=== PATIENT | female | born 1960 | race Caucasian/White ===

== ENCOUNTER → 2022-02-16 | Outpatient (CLI) | payer SELFPAY ==
--- NOTE | 2022-02-16 08:12 | BI_ITS ---
MAMMOGRAPHY - BILATERAL SCREENING REASON FOR EXAM: Female, 61 years old. Routine annual screening examination. PERTINENT HISTORY: Non-contributory. TECHNIQUE: Digital bilateral breast evelyn (3D mammographic acquisition) in the CC and MLO projections. 2-D mediolateral oblique (MLO) and craniocaudad (CC) views of both breasts were obtained. CAD: Full Field Digital Mammography with Computer Added Detection was performed. COMPARISON: Comparison is made with prior outside examination from 02/21/2007. FINDINGS: Breast Composition: There are scattered areas of fibroglandular density. There is a 7.5 mm x 7 mm well-defined nodule in the deep central medial aspect of the right breast. This has decreased slightly in size as compared to prior study. This may represent a small cyst. Correlation with ultrasound is recommended. No other significant abnormalities are identified. BI/SCRN MAMM (CAD)W/EVELYN BILAT IMPRESSION: 7.5 mm x 7 mm well-defined nodule in the deep central medial aspect of the right breast. Correlation with ultrasound is recommended. ASSESSMENT CATEGORY: BIRADS Category 0: Incomplete. Need additional imaging evaluation. A letter regarding these results will be sent to the patient by the facility within 30 days. Approximately 10% of breast cancers are not detected by mammography. A normal mammogram should not delay biopsy of a clinically suspicious abnormality. [id number] Electronically Signed: Srikanth Fitzpatrick MD at 9:24 EDT ,
== END | disposition home or self-care (01) ==
PROVIDERS: PCP Internal Medicine; Visit Provider Internal Medicine
DX: Z12.31 Encounter for screening mammogram for malignant neoplasm of breast (principal)
CPT/HCPCS: 77063; 77067

== ENCOUNTER → 2022-02-17 | Outpatient (CLI) | payer SELFPAY ==
--- NOTE | 2022-02-17 09:29 | US_ITS ---
STUDY: ULTRASOUND BREAST - RIGHT REASON FOR EXAM: Female, 61 years old. Abnormal screening mammogram. TECHNIQUE: Axial and longitudinal images of the RIGHT breast were performed with a high resolution ultrasound transducer. # OF IMAGES: 39 COMPARISON: Comparison is made with prior mammogram dated 02/16/2022. FINDINGS: RIGHT Breast: The mammographic abnormality corresponds to 3 adjacent cysts at the 1 o''clock position of the breast at 5 cm from the nipple. The largest cyst measures 3 mm x 3 mm x 3 mm. US/Breast Limited Unilateral IMPRESSION: Cluster of small cysts seen at the 1 o''clock position breast at 5 summary some nipple. ASSESSMENT CATEGORY: BIRADS Category 2: Benign. A letter regarding these results will be sent to the patient by the facility within 30 days. Electronically Signed: Srikanth Fitzpatrick MD at 12:11 EDT ,
== END | disposition home or self-care (01) ==
LOC: OPUS 09:20
PROVIDERS: PCP Internal Medicine; Visit Provider Internal Medicine
DX: R92.2 Inconclusive mammogram (principal); N60.01 Solitary cyst of right breast
CPT/HCPCS: 76642

== ENCOUNTER → 2025-01-04 | Outpatient (CLI) | payer MEDICARE, BC, SELFPAY ==
--- NOTE | 2025-01-04 10:18 | MRI_ITS ---
PROCEDURE: MRA HEAD ONLY WITHOUT CONTRAST 01/04/2025 REASON FOR EXAM: FAMILY HISTORY OF BRAIN ANEURYSM (Z82.49) COMPARISON: None available. TECHNIQUE: Multiplanar 2D and 3D [id number] MR angiographic imaging of the brain was performed without intravenous gadolinium-based contrast administration. FINDINGS: Vessels of the [id number] are within normal limits. Major intracranial arterial vessels are patent without flow-limiting stenosis, saccular aneurysm, or vascular malformation. MRI/MRA Head ONLY without Contrast IMPRESSION: Normal intracranial arterial vasculature. No aneurysm identified. Reading Location: [id number]
== END | disposition home or self-care (01) ==
LOC: MRI 10:12
PROVIDERS: PCP Internal Medicine; Referring Provider Internal Medicine; Visit Provider Internal Medicine
DX: Z13.6 Encounter for screening for cardiovascular disorders (principal); Z82.49 Family history of ischemic heart disease and other diseases of the circulatory system
CPT/HCPCS: 70544

== ENCOUNTER → 2025-01-10 | Outpatient (CLI) | payer MEDICARE, BC, SELFPAY ==
--- NOTE | 2025-01-10 14:05 | BI_ITS ---
EXAM: SCRN MAMM (CAD)W/EVELYN BILAT DATE: 01/10/2025 CLINICAL HISTORY: F, Age 64 y/o , SCREENING No family history. TECHNIQUE: SCRN MAMM (CAD)W/EVELYN BILAT COMPARISON: Prior exam(s) dated February 16, 2022.. FINDINGS: TISSUE DENSITY: There are scattered areas of fibroglandular density. Bilateral Breast Mammographic Findings: Stable 7.5 mm x 7 mm well-defined nodular density in the deep central medial aspect of the right breast. Prior sonogram dated February 17, 2022 demonstrated 3 adjacent small cysts the larger of which measures 3 mm x 3 mm. No suspicious masses, areas of developing architectural distortion, or suspicious calcifications. There has been no significant interval change. BI/SCRN MAMM (CAD)W/EVELYN BILAT IMPRESSION: Stable examination. OVERALL FINAL ASSESSMENT BI-RADS 2: BENIGN RECOMMENDATION: Routine annual follow-up in 1 Year A letter with findings and recommendations will be mailed to the patient. Reading Location: [facility]
--- NOTE | 2025-01-10 14:16 | BD_ITS ---
PROCEDURE: DEXA BONE DENSITY STUDY 01/10/2025 REASON FOR EXAM: F, age 64 y/o . Postmenopausal. TECHNIQUE: DEXA BONE DENSITY STUDY COMPARISON: None FINDINGS: BMD and T-SCORES Lumbar spine: 0.923 g/cm2, T-score -1.1 Levels: L1 through L4 Left femoral neck: 0.696 g/cm2, T-score -1.4 Femoral neck comparison data not recommended for monitoring change. Left total hip: 0.857 g/cm2, T-score -0.7 Right femoral neck: 0.705 g/cm2, T-score -1.3 Femoral neck comparison data not recommended for monitoring change. Right total hip: 0.840 g/cm2, T-score -0.8 The World Health Organization has defined the following categories based on bone density: Normal bone density: T-score equal to or greater than -1.0 Osteopenia: T-score between -1.0 and -2.5 Osteoporosis: T-score equal to or less than -2.5 FRAX (or Comparable) Fracture Risk Assessment: 10 Year Probability of Fracture: Major Osteoporotic Fracture: 8.7% Hip Fracture: 0.9% (Note: FRAX is not to be reported in setting of normal range bone density, osteoporosis on DEXA, known history of osteoporosis, prior osteoporotic hip or vertebral fracture, or for any patient undergoing pharmacological treatment for bone loss.) The National Osteoporosis Foundation (NOF) recommends pharmacological treatment for patients with a FRAX 10-year risk of 3% or higher for a hip fracture, or 20% or higher for a major osteoporotic fracture, to prevent osteoporosis and reduce fracture risk. The patient does meet the pharmacological treatment recommendations for prevention of osteoporosis. BD/Dexa Bone Density Study IMPRESSION: OSTEOPENIA. Recommend follow-up as clinically warranted. Reading Location: [facility]
== END | disposition home or self-care (01) ==
LOC: OPBD 14:03
PROVIDERS: PCP Internal Medicine; Referring Provider Internal Medicine; Visit Provider Internal Medicine
DX: Z12.31 Encounter for screening mammogram for malignant neoplasm of breast (principal); Z78.0 Asymptomatic menopausal state
CPT/HCPCS: 77063; 77067; 77080